=== PATIENT | female | born 1970 | race Caucasian/White ===

== ENCOUNTER 2024-10-31 05:38 | Day surgery (SDC) | payer OTHER ==
[2024-10-21 11:52] VITALS: BMI 28.9
[2024-10-31 10:13] VITALS: TEMP 97.6
[2024-10-31 10:48] VITALS: BP 110/68; PULSE 68; RESP 16
== END 2024-10-31 10:48 | disposition home or self-care (01) ==
LOC: JASU-ENDO 05:38
PROVIDERS: ATTEND Internal Medicine Gastroenterology
PROC: 0DJD8ZZ Inspection of Lower Intestinal Tract, Via Natural or Artificial Opening Endoscopic (ICD-10-PCS; principal; 2024-10-31 10:00)
DX: Z12.11 Encounter for screening for malignant neoplasm of colon (principal); K64.8 Other hemorrhoids; Z86.0100 Personal history of colon polyps, unspecified